=== PATIENT | male | born 1960 | race Caucasian/White ===

== ENCOUNTER 2022-02-08 15:47 | Emergency (ER) | payer OTHER ==
[2022-02-08 16:18] LABS: BASOPHILS # (AUTO) 0.1 10^3/uL (0.0-0.1); BASOPHILS % (AUTO) 0.9 %; EOSINOPHILS # (AUTO) 0.2 10^3/uL (0.0-0.7); EOSINOPHILS % (AUTO) 2.3 %; HCT - HEMATOCRIT 47.5 % (42.0-52.0); HGB - HEMOGLOBIN 15.8 g/dL (14.0-18.0); LYMPHOCYTES # (AUTO) 2.6 10^3/uL (1.5-3.5); LYMPHOCYTES % (AUTO) 25.9 %; MEAN CORPUSCULAR HEMOGLOBIN 30.9 pg (27.0-31.0); MEAN CORPUSCULAR HGB CONC 33.3 g/dL (32.0-36.0); MEAN CORPUSCULAR VOLUME 92.8 fL (80.0-94.0); MEAN PLATELET VOLUME 11.3 fL (7.4-11.4); MONOCYTES # (AUTO) 0.9 10^3/uL (0.0-1.0); MONOCYTES % (AUTO) 8.9 %; NEUTROPHILS # (AUTO) 6.2 10^3/uL (1.5-6.6); NEUTROPHILS % (AUTO) 61.7 %; PLT - PLATELET COUNT 293 10^3/uL (130-450); RED BLOOD COUNT 5.12 10^6/uL (4.70-6.10); RED CELL DISTRIBUTION WIDTH 12.5 % (12.0-15.0); WHITE BLOOD COUNT 10.1 x10^3/uL (4.8-10.8)
--- NOTE | 2022-02-08 16:22 | ED Physician Documentation ---
History of Present Illness - Stated complaint Stated Complaint: SOA/TIGHTNESS IN JAW - Chief complaint Chief Complaint: Resp - Additonal information Additional information: 61-year-old morbidly obese male presents emergency department for evaluation of shortness of air while sleeping last night and right jaw pain. He reports that he woke up gasping for air and had pain in his right jaw. He denies however that he had any chest discomfort or pain. He did not think much of it and went back to sleep but multiple times he continued to wake up gasping. This gentleman is on furosemide and Lasix. He reports that he is on it because he has a history of bilateral knee replacements but he also tells this provider that he has seen a appointment clerk in the past and was diagnosed with congestive heart failure. He is not currently taking any antihypertensives. He is a non- smoker. Denies dyspnea with exertion, the feeling of palpitations. Denies that he has difficulty doing his daily tasks or activities. He just moved to [facility] from [facility]. He denies that he is ever had a heart attack or stroke. He does have lower extremity edema that is unchanged from baseline. No cough, no fevers. Meds: Lasix 40 mg daily, potassium chloride 40 mg daily, doxycycline 100 mg daily, albuterol 2 puffs as needed Review of Systems Constitutional: denies: Fever, Chills Eyes: reports: Reviewed and negative Ears: reports: Reviewed and negative Nose: reports: Reviewed and negative Cardiac: reports: Palpitations, Pedal edema. denies: Chest pain / pressure, Calf pain Respiratory: reports: Dyspnea. denies: Cough, Hemoptysis, Wheezing GI: denies: Abdominal Pain, Nausea : reports: Reviewed and negative Skin: reports: Reviewed and negative Musculoskeletal: reports: Reviewed and negative Neurologic: reports: Reviewed and negative PD PAST MEDICAL HISTORY - Present Medications Home Medications: Ambulatory Orders Medication Instructions Recorded Confirmed Apixaban [Eliquis] 5 mg PO BID #60 tablet 02/08/22 Furosemide [Lasix] 40 mg PO DAILY #30 tablet 02/08/22 Potassium Chloride [K-Dur] 40 meq PO DAILY #30 tablet 02/08/22 - Allergies Allergies/Adverse Reactions: Allergies Allergy/AdvReac Type Severity Reaction Status Date / Time No Known Drug Allergies Allergy Verified 02/08/22 15:53 PD ED PE NORMAL - General General: Alert and oriented X 3, No acute distress, Well developed/nourished - HEENT HEENT: Atraumatic, Other (Mallampati of 4) - Neck Neck: Supple, no meningeal sign, Thyroid normal - Cardiac Cardiac: No: RRR (Irregularly irregular. Systolic murmur), No murmur - Respiratory Respiratory: No respiratory distress, Clear bilaterally - Abdomen Abdomen: Normal bowel sounds, Soft - Back Back: No CVA TTP, No spinal TTP - Derm Derm: Normal color, Warm and dry, No rash - Extremities Extremities: No deformity, No tenderness to palpate, Normal ROM s pain. No: No edema (Bilateral calf edema with hemosiderin staining lower extremities. Unchanged from baseline) Results - Vitals Vitals: Vital Signs - 24 hr 02/08/22 02/08/22 15:53 16:29 Temperature 36.5 C Heart Rate 112 H 88 Respiratory 20 16 Rate Blood Pressure 150/100 H 156/110 H O2 Saturation 96 97 Oxygen O2 Source Room air - EKG (time done) 1619 Rate: Rate (enter#) (86) Rhythm: Atrial fibrillation [place]: LAD Intervals: No: Prolonged QT QRS: LVH Ischemia: Non specific changes Compare to prior EKG: Old EKG unavailable Computer interpretation: Agree with computer - Labs Labs: Laboratory Tests 02/08/22 02/08/22 02/08/22 16:10 16:10 16:10 WBC 10.1 RBC 5.12 Hgb 15.8 Hct 47.5 MCV 92.8 MCH 30.9 MCHC 33.3 RDW 12.5 Plt Count 293 MPV 11.3 Neut # (Auto) 6.2 Lymph # (Auto) 2.6 [place] # (Auto) 0.9 Eos # (Auto) 0.2 Baso # (Auto) 0.1 Absolute Nucleated RBC 0.00 Nucleated RBC % 0.0 Sodium 137 Potassium 3.9 Chloride 103 Carbon Dioxide 26 Anion Gap 8.0 BUN 18 Creatinine 0.8 Estimated GFR (MDRD) 98 Glucose 118 H Calcium 9.3 Total Bilirubin 0.9 AST 22 ALT 22 Alkaline Phosphatase 84 Troponin I High Sens 13.9 B-Natriuretic Peptide Total Protein 7.9 Albumin 3.9 Globulin 4.0 Albumin/Globulin Ratio 1.0 Lipase 32 02/08/22 16:10 WBC RBC Hgb Hct MCV MCH MCHC RDW Plt Count MPV Neut # (Auto) Lymph # (Auto) [place] # (Auto) Eos # (Auto) Baso # (Auto) Absolute Nucleated RBC Nucleated RBC % Sodium Potassium Chloride Carbon Dioxide Anion Gap BUN Creatinine Estimated GFR (MDRD) Glucose Calcium Total Bilirubin AST ALT Alkaline Phosphatase Troponin I High Sens B-Natriuretic Peptide 273 H Total Protein Albumin Globulin Albumin/Globulin Ratio Lipase - Rads (name of study) cxr Radiology: EMP read indepedently (Cardiomegaly. No acute cardiopulmonary process) PD MEDICAL DECISION MAKING - ED course Complexity details: reviewed results, re-evaluated patient, considered differential, d/w patient ED course: 61-year-old male who is morbidly obese and has a remote history of congestive heart failure for which he takes Lasix daily presents to the emergency department with gasping for air when he was asleep last night. He also reported right jaw pain. He states that a number years ago he had a sleep study that was negative. He denies that he is ever had a heart attack or stroke. His screening labs are most significant for mildly elevated BNP of just around 240. However given his morbid obesity this may be falsely low. His chest x-ray does not show findings of significant volume overload though he does have some mildly noted cardiomegaly. Unfortunately the EKG does show that he has a rate controlled atrial fibrillation. He denies a sensation of palpitations and has never been told he has atrial fib before. Given that he has a chads vascular 2 score of 2 he is moderate to high risk for thromboembolic event. Given this I discussed with him the option of anticoagulation for nonvalvular atrial fib and he would like to start Eliquis which will be started today. 9 his troponin is negative and he is free of chest pain therefore I doubt acute coronary syndrome. I suspect the gasping for air at night is most likely due to obstructive sleep apnea given his Mallampati score of 4 and his morbid obesity. I have advised the patient to have close follow-up with Amos DONALDSON at [facility] who is controller mechanic for ED follow-up. We discussed emergent return precautions for worsening shortness of air, any chest pain or bleeding concerns Departure - Departure Disposition: 01 Home, Self Care Clinical Impression: Atrial fibrillation Qualifiers: Atrial fibrillation type: unspecified Qualified Code(s): I48.91 - Unspecified atrial fibrillation Condition: Stable Record reviewed to determine appropriate education?: Yes Instructions: Atrial Fibrillation Dc, Apixaban oral tablets Follow-Up: [facility] [Provider Group] Prescriptions: Apixaban [Eliquis] 5 mg PO BID #60 tablet Potassium Chloride [K-Dur] 40 meq PO DAILY #30 tablet Furosemide [Lasix] 40 mg PO DAILY #30 tablet Comments: Casey you are seen tonight in the emergency department because you woke up gasping when asleep last night as well as having right jaw pain. The EKG completed on you today shows that you are in a type of heart rhythm called atrial fibrillation. It is unclear how long you have been in this rhythm. However a history of congestive heart failure as well as morbid obesity does put you at risk to develop this disorder. The biggest risk with atrial fibrillation is that you could develop blood clots in the upper chambers of your heart that could cause a stroke. With your past medical history you are at moderate to high risk to have a stroke with your atrial fibrillation therefore we do recommend that you begin taking Eliquis. This is a medication to help you prevent clots from forming. Eliquis does put you at risk for uncontrolled bleeding if you are any any major car accidents, fall and hit your head. Therefore if you develop any sudden severe headache, have black or bloody stools, uncontrolled bleeding or blood in your urine you should return immediately to the emergency department. I suspect that the gasping for air last night was due to obstructive sleep apnea. It is going to be very important that you follow-up with [facility] to establish care. You need an emergent referral to cardiology for further evaluation and testing of your atrial fibrillation as well as your history of congestive heart failure. I have refilled your Lasix and your potassium as well as started you on Eliquis. These 3 prescriptions have been sent to the [facility] in [place]. If at any point you feel that you are not doing well, you have a racing heart, palpitations, feel faint, dizzy develop chest pain or have fainting episodes you should return immediately to the emergency department
--- NOTE | 2022-02-08 16:24 | XRAY Report ---
PROCEDURE: Chest 1 View X-Ray INDICATIONS: Chest Pain TECHNIQUE: One view of the chest was acquired. COMPARISON: None FINDINGS: Surgical changes and devices: None. Lungs and pleura: No pleural effusions or pneumothorax. Lungs are clear. Mediastinum: Mediastinal contours appear normal. Heart size is normal. Bones and chest wall: No suspicious bony lesions. Overlying soft tissues appear unremarkable. IMPRESSION: No acute cardiopulmonary process demonstrated radiographically. Reviewed by: Wiley Escoto MD on 02/08/2022 4:23 PM PDT Approved by: Wiley Escoto MD on 02/08/2022 4:23 PM PDT Station ID: [id number]
[2022-02-08 16:27] LABS: ALBUMIN 3.9 g/dL (3.2-5.5); BILIRUBIN,TOTAL 0.9 mg/dL (0.2-1.0); CALCIUM 9.3 mg/dL (8.5-10.3); CREATININE 0.8 mg/dL (0.6-1.2); POTASSIUM 3.9 mmol/L (3.5-5.0); TOTAL PROTEIN 7.9 g/dL (6.7-8.2)
[2022-02-08 16:30] VITALS: BP 156/110
[2022-02-08] MEDS ORDERED: FUROSEMIDE 20 MG TABLET PO STA (17:29)
[2022-02-08] MEDS ORDERED: APIXABAN 5 MG TABLET PO STA (17:29)
== END 2022-02-08 17:49 | disposition home or self-care (01) ==
LOC: ED 15:47
DX: I48.91 Unspecified atrial fibrillation (principal); I50.9 Heart failure, unspecified; E66.01 Morbid (severe) obesity due to excess calories
CPT/HCPCS: 36415; 71045; 80053; 83690; 83880; 84484; 85025; 93005; 99283; 99284; A9270

== ENCOUNTER 2024-02-14 09:30 | Outpatient (CLI) | payer OTHER ==
[2024-02-14 10:19] LABS: BASOPHILS # (AUTO) 0.1 10^3/uL (0.0-0.1); BASOPHILS % (AUTO) 0.7 %; EOSINOPHILS # (AUTO) 0.2 10^3/uL (0.0-0.7); HCT - HEMATOCRIT 44.9 % (42.0-52.0); HGB - HEMOGLOBIN 14.2 g/dL (14.0-18.0); LYMPHOCYTES # (AUTO) 2.3 10^3/uL (1.5-3.5); MEAN CORPUSCULAR HEMOGLOBIN 30.5 pg (27.0-31.0); MEAN CORPUSCULAR HGB CONC 31.6 g/dL (32.0-36.0); MEAN CORPUSCULAR VOLUME 96.6 fL (80.0-94.0); MONOCYTES # (AUTO) 0.8 10^3/uL (0.0-1.0); MONOCYTES % (AUTO) 10.8 %; NEUTROPHILS % (AUTO) 54.4 %; PLT - PLATELET COUNT 249 10^3/uL (130-450); RED BLOOD COUNT 4.65 10^6/uL (4.70-6.10); RED CELL DISTRIBUTION WIDTH 13.7 % (12.0-15.0); WHITE BLOOD COUNT 7.3 x10^3/uL (4.8-10.8)
[2024-02-14 10:36] LABS: CALCIUM 9.7 mg/dL (8.5-10.3); CREATININE 0.8 mg/dL (0.6-1.3); POTASSIUM 4.2 mmol/L (3.5-4.5)
== END 2024-02-14 09:31 | disposition home or self-care (01) ==
LOC: LAB 09:30
PROVIDERS: ATTEND Internal Medicine Cardiovascular Disease
DX: I48.0 Paroxysmal atrial fibrillation (principal)
CPT/HCPCS: 36415; 80048; 85025

== ENCOUNTER 2024-05-20 07:27 | Outpatient (CLI) | payer OTHER ==
[2024-05-20 07:55] LABS: CALCIUM 9.5 mg/dL (8.5-10.3); CREATININE 0.8 mg/dL (0.6-1.3); POTASSIUM 4.2 mmol/L (3.5-4.5)
== END 2024-05-20 07:28 | disposition home or self-care (01) ==
LOC: LAB 07:27
DX: I50.20 Unspecified systolic (congestive) heart failure (principal)
CPT/HCPCS: 36415; 80048